=== PATIENT | female | born 1995 | race Two or more races ===

== ENCOUNTER → 2021-02-03 | Outpatient (REF) | payer OTHER ==
[2021-02-03 17:29] LABS: HEMATOCRIT 37.2 % (36.0-47.0); HEMOGLOBIN 12.2 g/dl (12.0-15.5); MEAN CORPUSCULAR HEMOGLOBIN 33.6 pg (27.0-33.0); MEAN CORPUSCULAR HGB CONC 32.8 g/dl (32.0-36.5); MEAN CORPUSCULAR VOLUME 102.5 fl (80.0-96.0); PLATELET COUNT, AUTOMATED 182 10^3/uL (150-450); RED BLOOD COUNT 3.63 10^6/uL (4.00-5.40); WHITE BLOOD COUNT 7.8 10^3/uL (4.0-10.0)
== END ==
LOC: M PLALAB 14:00
PROVIDERS: ATTEND Advanced Practice Midwife
DX: O34.211 Maternal care for low transverse scar from previous cesarean delivery (principal)

== ENCOUNTER → 2021-02-25 | Outpatient (REF) | payer OTHER | LOC: M SFHCWAGY 16:59 | PROVIDERS: ATTEND Advanced Practice Midwife | DX: O34.211 Maternal care for low transverse scar from previous cesarean delivery (principal) ==

== ENCOUNTER → 2021-03-19 | Outpatient (CLI) | payer OTHER ==
[~2021-03-19] MED LIST: ACET-897 PO; AMOX250C3 PO; PRENTAB9 PO
== END ==
LOC: M LABSMTC 10:40
PROVIDERS: ATTEND Specialist
DX: Z20.822 Contact with and (suspected) exposure to COVID-19 (principal)

== ENCOUNTER 2021-03-23 03:38 | Inpatient (IN) | payer OTHER ==
[~2021-03-23] VITALS: Ht 154.9 cm; Wt 67.8 kg
[2021-03-23] VITALS (17 sets, daily range): BP systolic 109–181; BP diastolic 52–137
[2021-03-23] MEDS ORDERED: LACTATED RINGER'S 1000 ML IV STA (04:04)
[2021-03-23] MEDS ORDERED: LIDOCAINE 1% MDV 20ML VIAL INFIL PRN (04:05)
[2021-03-23] MEDS ORDERED: OXYTOCIN DRIP 30 UNITS in IV 1 EA IV PRN (04:05)
[2021-03-23] MEDS ORDERED: METHYLERGONOVINE MALEATE 0.2 MG/ML VIAL (J2210) IM PRN (04:05)
[2021-03-23] MEDS ORDERED: CARBOPROST TROMETHAMINE 250 MCG/ML AMP IM PRN (04:05)
[2021-03-23] MEDS ORDERED: LR 1,000 ML IV SCH (04:05)
[2021-03-23] MEDS ORDERED: TRANEXAMIC ACID INJection 1,000 MG in NS 100 ML IV PRN (04:05)
[2021-03-23 04:21] LABS: HEMATOCRIT 39.9 % (36.0-47.0); HEMOGLOBIN 13.4 g/dl (12.0-15.5); MEAN CORPUSCULAR HEMOGLOBIN 33.8 pg (27.0-33.0); MEAN CORPUSCULAR HGB CONC 33.6 g/dl (32.0-36.5); MEAN CORPUSCULAR VOLUME 100.5 fl (80.0-96.0); PLATELET COUNT, AUTOMATED 189 10^3/uL (150-450); RED BLOOD COUNT 3.97 10^6/uL (4.00-5.40); WHITE BLOOD COUNT 7.4 10^3/uL (4.0-10.0)
--- NOTE | 2021-03-23 04:29 | HPEPDOC ---
Obstetrical History & Physical General Date of Admission Mar 23, 2021 at 03:57 Primary Care Physician: LEON HUANG CNM History of Present Illness Chief Complaint: Active Labor Information Provided By: Patient Age: 25 Care Care: Good Care Past Medical History Past Medical History Surgical History: section Social History Marital Status: Family situation: Spouse/partner home Physical Examination Physical Examination GENERAL: Alert and oriented times three. BREAST: . ABDOMEN: Gravid and non-tender to touch. FETUS: Is vertex (VTX) by sterile vaginal examination (SVE), fetus is vertex (VTX) by Tobias. HEART RATE: Regular rate and rhythm. LUNGS: Clear to auscultation (CTA). EXTREMITIES: No edema. No clonus. Deep tendon reflexes (DTRs) + . Vaginal Examination Dilation: 3 cm Effacement: other (75%) Station: -2 Cervical Position: Middle Presentation: Cephalic presentation Assessment Heart Rate (FHR): 140 Variability: Moderate Accelerations: Positive Assessment/Plan Assessment IUP at 39+ weeks gestation active labor Prior LTCS GBS negative Plan Admit to L&D. Dr. Sterling present and aware of admission. She desires a TOLAC. Risk, benefits, alternatives reviewed. She continues to desires TOLAC. OOB ad kwabena. Diet: clears. Group B Streptococcus (GBS) negative. Labs and intravenous (IV) per unit protocol. Anesthesia consult per patient's request. Lactated Ringers (LR): Bolus 800 mL prior to epidural, then at 125 mL/hr. Anticipate cervical change C-S as appropriate. LEON HUANG CNM Mar 23, 2021 04:29
[2021-03-23 04:50] LABS: ALT/SGPT 23 U/L (12-78); BILIRUBIN,TOTAL 0.4 MG/DL (0.2-1.0); CREATININE FOR GFR 0.68 MG/DL (0.55-1.30); GLOMERULAR FILTRATION RATE > 60.0 (>60); LDH LACTATE DEHYDROGENASE 205 U/L (84-246)
[2021-03-23] MEDS ORDERED: FENTANYL/ROPIVACAINE/NACL BAG 100 ML EPIDURAL SCH (05:15)
[2021-03-23] MEDS ORDERED: REFRIGERATOR IV KEYS XX PRN (05:15)
[2021-03-23] MEDS ORDERED: EPIDURAL COMMENT XX SCH (05:15)
[2021-03-23] MEDS ORDERED: EPIDURAL/PCA KEYS XX PRN (05:15)
[2021-03-23] MEDS ORDERED: diphenhydrAMINE 50MG/ML VIAL (J1200) IV PRN (05:15)
[2021-03-23] MEDS ORDERED: ePHEDrine SULFATE 25 MG/5 ML(5MG/ML) SYRINGE IV PRN (05:15)
[2021-03-23] MEDS ORDERED: LACTATED RINGER'S 1000 ML IV PRN (05:15)
[2021-03-23] MEDS ORDERED: NALOXONE INJ 0.4MG/1ML VIAL (J2310 PER 1MG) IV PRN (05:15)
[2021-03-23] MEDS ORDERED: ONDANSETRON 4MG/2ML VIAL IV PRN (05:15)
[2021-03-23] MEDS ORDERED: FENTANYL 2MCG/ML ROPIVACAINE 0.2% IN 0.9% NACL 100ML IVBAG As Ordered ONE (05:17)
[2021-03-23] MEDS ORDERED: OXYTOCIN 30 UNITS IN 0.9% NaCl 500ML IV BAG (J2590) As Ordered ONE (05:59)
[2021-03-23 06:44] LABS: CORD GAS ABE V -5.7; CORD GAS HCO3 V 22.1 MEQ/L; CORD GAS O2 SAT V 29.6 %; CORD GAS PCO2 V 53.1 mmHg; CORD GAS PH V 7.237 UNITS; CORD GAS PO2 V 16.9 mmHg; CORD GAS SBC V 18.4 MEQ/L; CORD GAS TCO2 V 23.7 MEQ/L
[2021-03-23 06:48] LABS: CORD GAS ABE A -13.6; CORD GAS HCO3 A 13.8 MEQ/L; CORD GAS PCO2 A 37.6 mmHg; CORD GAS PH A 7.184 UNITS; CORD GAS SBC A 13.3 MEQ/L
[2021-03-23] MEDS ORDERED: SLF 3 ML SYR IV PRN (08:00)
[2021-03-23] MEDS ORDERED: DIBUCAINE 1% OINTMENT 30GM TOP PRN (08:15)
[2021-03-23] MEDS ORDERED: ACETAMINOPHEN TAB 650MG DOSE (2X325MG) PO PRN (08:15)
[2021-03-23] MEDS ORDERED: METHYLERGONOVINE MALEATE 0.2 MG TAB PO PRN (08:15)
[2021-03-23] MEDS ORDERED: RHOGAM 300 MCG (1500 IU) INJ (J2790) IM SCH (08:15)
[2021-03-23] MEDS ORDERED: IBUPROFEN 600MG TAB PO PRN (08:15)
[2021-03-23] MEDS ORDERED: MEASLES,MUMPS,RUBELLA VACCINE INJ (MMR-II) (90707) SC SCH (08:15)
[2021-03-23] MEDS ORDERED: DOCUSATE SODIUM 100MG CAPSULE PO PRN (08:15)
[2021-03-23] MEDS ORDERED: ANUSOL HC CREAM 30GM TOP PRN (08:15)
--- NOTE | 2021-03-23 08:20 | DNPDOC ---
[facility] Delivery Note Delivery Note DATE OF DELIVERY: 03/23/21 at 0626 PREDELIVERY DIAGNOSIS: 39-4/7 weeks' gestation and labor. POST DELIVERY DIAGNOSIS: Delivered. PROCEDURE: TOLAC. 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 ESTIMATED BLOOD LOSS: 400 mL. FINDINGS: pound ounce , Score /, successful after 2 sections. DELIVERY SUMMARY: Patient is a -year-old now para --- who was admitted to labor and delivery for as hours on . LEON SMITH CNM Mar 23, 2021 08:20
[2021-03-23] MEDS ORDERED: ACET-897 PO (09:24)
[2021-03-23] MEDS ORDERED: PRENTAB9 PO (09:24)
[2021-03-23] MEDS ORDERED: AMOX250C3 PO (09:24)
[2021-03-23] MEDS: PRENATAL VITAMINS CHEWABLE TABLET PO SCH (09:57)
[2021-03-23] MEDS: IBUPROFEN 800 MG TAB PO PRN (09:58)
[2021-03-23] MEDS ORDERED: SLF 3 ML SYR IV SCH (14:00)
[2021-03-23] MEDS: ACETAMINOPHEN 500 MG TAB PO PRN (17:22)
[2021-03-24] MEDS: ACETAMINOPHEN 500 MG TAB PO PRN (00:40)
[2021-03-24 06:00] VITALS: BP 128/65
[2021-03-24] MEDS: IBUPROFEN 800 MG TAB PO PRN (08:32)
[2021-03-24] MEDS: PRENATAL VITAMINS CHEWABLE TABLET PO SCH (08:32)
[2021-03-24] MEDS ORDERED: BOOSTRIX/ADACEL VACCINE (DIPHTH/PERTUSS/ACELL/TETANUS) 0.5ML SYR IM ONE (09:00)
== END 2021-03-24 13:42 | disposition home or self-care (01) | DRG 807 ==
LOC: M LDO 03:38 → M LDI 03:57 → M OBS 10:53
PROVIDERS: ADMIT Advanced Practice Midwife; ATTEND Advanced Practice Midwife
PROC: 10E0XZZ Delivery of Products of Conception, External Approach (ICD-10-PCS; principal; 2021-03-23)
PROC: 0HQ9XZZ Repair Perineum Skin, External Approach (ICD-10-PCS; 2021-03-23)
DX: O34.219 Maternal care for unspecified type scar from previous cesarean delivery (principal); Z37.0 Single live birth; Z3A.39 39 weeks gestation of pregnancy; O70.0 First degree perineal laceration during delivery